=== PATIENT | male | born 1960 | race Two or more races ===

== ENCOUNTER 2018-07-06 15:42 | Emergency (ER) | payer MEDICAID ==
[~2018-07-06] VITALS: Ht 172.7 cm; Wt 83.9 kg
[2018-07-06 16:08] VITALS: BP 159/71
--- NOTE | 2018-07-06 17:13 | NUR ---
Patient discharged to home in stable condition. Written and verbal after care instructions given. Patient verbalizes understanding of instruction.
== END 2018-07-06 17:13 | disposition home or self-care (01) ==
LOC: ER 15:45
DX: L03.116 Cellulitis of left lower limb (principal); L03.115 Cellulitis of right lower limb; L08.9 Local infection of the skin and subcutaneous tissue, unspecified; I10 Essential (primary) hypertension; F17.200 Nicotine dependence, unspecified, uncomplicated
CPT/HCPCS: 99283; A4606